=== PATIENT | male | born 1965 | race Caucasian/White ===

== ENCOUNTER 2024-03-24 17:58 | Emergency (ER) | payer BC ==
[~2024-03-24] VITALS: Ht 182.9 cm; Wt 10.2 kg
[2024-03-24 18:14] VITALS: BP 142/89; PULSE 84; RESP 18; TEMP 97.8; O2SAT 99
== END 2024-03-24 18:59 ==
LOC: ER 17:58
DX: Z00.00 Encounter for general adult medical examination without abnormal findings (principal); Z77.098 Contact with and (suspected) exposure to other hazardous, chiefly nonmedicinal, chemicals
CPT/HCPCS: 99283